=== PATIENT | female | born 1930 | race Caucasian/White ===

== ENCOUNTER 2017-02-07 08:43 | Day surgery (SDC) | payer OTHER, MEDICARE ==
[~2017-02-07 08:43] MED LIST: LIDOCAINE W/ SODIUM BICARB 0.5 ML SYR ONE; Lactated Ringers 1,000 ML PRIMARY IV ONE
[2017-02-07] MEDS ORDERED: fentaNYL Inj 100 MCG/2 ML VIAL IVP ONE (09:00)
[2017-02-07] MEDS ORDERED: MIDAZOLAM 5 MG/1 ML IVP ONE (09:00)
[2017-02-07 12:21] VITALS: RESP 12; TEMP 97.8
== END 2017-02-07 12:14 | disposition home or self-care (01) ==
LOC: SDSC 08:43 → EDBD 08:43 → SDSC 12:14
PROVIDERS: ATTEND Ophthalmology
DX: H25.12 Age-related nuclear cataract, left eye (principal)
CPT/HCPCS: 66984; J3010; J2250; J7120

== ENCOUNTER 2018-07-20 19:14 | Inpatient (IN) ==
[2018-07-20] MEDS ORDERED: CALCIUM CARBONATE 500 MG (TUMS) CHEWABLE TABLET PO PRN (21:58)
[2018-07-20] MEDS ORDERED: ACETAMINOPHEN 325 MG TABLET PO PRN (21:58)
[2018-07-20] MEDS ORDERED: DOCUSATE 100 MG CAPSULE PO PRN (21:58)
[2018-07-20] MEDS ORDERED: ONDANSETRON 4 MG/2 ML VIAL IVP PRN (21:58)
[2018-07-20] MEDS ORDERED: LIDOCAINE W/ SODIUM BICARB 0.5 ML SYR SUBD PRN (21:58)
--- NOTE | 2018-07-20 22:46 | PDOC ---
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 She hit her right wrist and her right hip and had pain. She was taken to the emergency room in [place], [place], where she resides and was found to have a fractured right hip but her x-ray for her wrist was apparently negative. She does have some soft tissue swelling there. She did not hit her head and did not lose consciousness that I am aware of. She's not had a fall like this before. She states that her pain was controlled with morphine in the emergency room there. She had some spasms but those have all resolved. She did not have any dizziness, lightheadedness or presyncopal symptoms, chest pain, shortness breath, nausea or vomiting surrounding this event. Dr. Sanches was called and he asked if I would be willing to accept the patient and admitted her and I agreed to do that. He plans on doing a hemiarthroplasty tomorrow on the right hip. From a perioperative screening standpoint, the patient does not have any history of stroke, she does not have any kidney failure problems, she does not have any coronary artery disease, congestive heart failure, or any known arrhythmias that would put her at increased risk outside of her age. She was hypertensive tonight but understandable in the setting of her pain. History was obtained with the patient, her daughter, and her mechanical reliability engineer at bedside at various times. Past Medical History Medical History: 1. GERD Surgical History: 1. Push hysterectomy. 2. Appendectomy. 3. Tonsillectomy and adenoidectomy Pertinent Family History: Patient's mother had a hip fracture at age 85 Past Social History: Does not smoke or drink. Was for 65 years but just lost her this past December. Has 3 children described as healthy. Lives in [place], [place]. Tobacco Use: Never Smoker In the Past 12 Months, Have Used or Abuse Any of the Following Substance: None Alcohol Use: None Medication / Allergies Home Medications: Home Medications 3 Medication Instructions Recorded Confirmed Type Omeprazole 20 mg PO DAILY 02/01/17 02/07/17 History Allergies/Adverse Reactions: Allergies 3 Allergy/AdvReac Type Severity Reaction Status Date / Time No Known Allergies Allergy Verified 07/20/18 22:16 Review of Systems - Review of Systems All Systems: Reviewed & No Additional Complaints Except as Stated (I did a 12 point review systems and it was negative other than that discussed in history present illness and that noted below.) - Genitourinary Genitourinary: REPORTS: Incontinence (Has some stress incontinence at times. Uses a pad.) Exam - Vitals Vital Signs: Vital Signs Temperature 98.2 F Temperature Source Temporal Artery Scan Pulse Rate [Pulse Oximeter] 85 Respiratory Rate 16 Blood Pressure [Right Arm] 150/55 Pulse Ox 94 Oxygen Flow Rate 2 Oxygen Delivery Method Nasal Cannula - General General Appearance: No Acute Distress, Cooperative - Head Head Exam: Normal Inspection, Normocephalic, Atraumatic - Eye Eye Exam: POSITIVE: Normal Appearance, No Scleral Icterus - ENT ENT Exam: POSITIVE: Mucous Membranes Moist - Neck Neck Exam: Normal Inspection, No Tenderness, No Lymphadenopathy, No Thyromegaly , JVP is not Raised - Respiratory Respiratory Exam: POSITIVE: Clear to Auscultation - Bilaterally, Breathing Non Labored - Cardiovascular Cardiovascular Exam: POSITIVE: RRR, No Murmur, No Clicks, No Gallops, No Rubs, No JVD - GI/Abdominal GI/Abdominal Exam: POSITIVE: Normal Bowel Sounds, Non Tender, Non Distended, Soft - Rectal Rectal Exam: POSITIVE: Deferred - External Exam: POSITIVE: Deferred Exam: POSITIVE: Deferred - Extremities Extremities Exam: POSITIVE: No Clubbing Present, No Edema Present, No Cyanosis Present Additional Extremities Exam Details: The right lower extremity is shorter than the left lower extremity and it is externally rotated at the hip. - Neurological Neurological Exam: POSITIVE: Alert, Oriented x 3, No Facial Droop, Speech Intact / Clear Additional Neurological Exam Details: Lower extremity muscle strength testing was deferred given the patient's injury. - Psychiatric Psychiatric Exam: POSITIVE: Normal Affect, Normal Mood - Integumentary Integumentary Exam: POSITIVE: Normal Color, Warm, Dry, Intact - Central Line Examination Central Line Present on Admission: No Results - Labs Additional Lab Results: White blood cell count is 11.6, hemoglobin 13.5, hematocrit 41.5, platelets 334, 000. Sodium is 140, potassium 3.4, chloride 104, CO2 is 28, BUN 20, creatinine 1.09, glucose 91 PT is 13.3, INR 1.0, PTT 29.5 Total protein 7.4, albumin 3.7, total bilirubin 0.4, ALT 21, AST 20, alkaline phosphatase 150 - EKG Data -: EKG Interpreted by Me Rate: Normal EKG Shows Normal: Sinus Rhythm - EKG Data EKG Interpretation: Other (There is a left bundle branch block pattern. I do not know if this is new or old. I suspect it's old.) - Imaging Status: Report Reviewed by Me (I discussed the reports with Dr. Stanford in [place], [place], and that was positive for a hip fracture with a closed surgical neck fracture of the right femur. We tried to load the films unfortunately the CD is corrupt and [facility] cannot push films so we will have to repeat them.) Assessment and Plan - Patient Problems (1) Closed right hip fracture Status: Acute Code(s): S72.001A - Fracture of unspecified part of neck of right femur, initial encounter for closed fracture Qualifiers: Encounter type: initial encounter Qualified Code(s): S72.001A - Fracture of unspecified part of neck of right femur, initial encounter for closed fracture (2) GERD (gastroesophageal reflux disease) Status: Acute Code(s): K21.9 - Gastro-esophageal reflux disease without esophagitis Qualifiers: Esophagitis presence: without esophagitis Qualified Code(s): K21.9 - Gastro -esophageal reflux disease without esophagitis (3) Left bundle branch block Status: Acute Code(s): I44.7 - Left bundle-branch block, unspecified - Assessment / Plan Additional Assessment/Plan Details: Admit the patient Orthopedic consultation for hip fracture. From on AHA/ACC non-vascular perioperative guidelines for surgical clearance perspective, I think the patient should proceed to the operating room with postoperative risk stratification. Patient has a following risk factors: No Congestive heart failure, no renal failure, no history of stroke, no coronary artery disease, no arrhythmia, and no active anginal chest pains, and patient meets 4 METS Pain control with parenteral medications such as Dilaudid and hydrocodone. Antiemetics. Nothing by mouth at midnight. Eventual DVT prophylaxis postoperatively, 28-35 days. We discussed objectives from hospitalist side which are to try to prevent urinary tract infection, pneumonia, skin breakdown, malnutrition, and DVT/PE, but I did not guarantee that these outcomes could be prevented at 100% but I did guarantee that we would try to do our best. PT and OT. Vitamin D level. MRSA screening Willis catheter due to immobility and hopefully get that out 48 hours postoperatively if possible Patient will need case management to determine rehabilitation options such a swing bed versus acute rehabilitation versus other. Type and screen for 2 units packed red blood cells CODE STATUS is discussed, patient is DNR Unfortunately in this situation, we will have to repeat films as we cannot get them from [facility] prior to surgery and the CD on which they were sent up on is not readable as it is corrupt I discussed the above plan with the patient and family and they all agree to proceed with the plan above
--- NOTE | 2018-07-20 22:47 | EKG ---
[address] [place] [address] Measurements Intervals [place] Rate: 85 P: 66 [place]: 192 QRS: -37 QRSD: 135 T: 82 QT: 410 QTc: 453 Interpretive Statements SINUS RHYTHM MARKED LEFT AXIS DEVIATION [QRS AXIS < -30] LEFT BUNDLE BRANCH BLOCK [120+ ms QRS DURATION, 80+ ms Q/S IN V1/V2, 85+ ms R IN I/aVL/V5/V6] No previous ECG available for comparison Electronically Signed On 07-21-18 09:03:48 MDT by Steve Rutherford MD [email or web address]
[2018-07-20] MEDS ORDERED: POTASSIUM CHLORIDE 20 MEQ TAB PO ONE (23:07)
[2018-07-20] MEDS: HYDROcodone-APAP 5 MG -325 MG TABLET PO PRN (23:11)
[2018-07-20] MEDS: HYDROmorphone 2 MG/1 ML IVP PRN (23:34)
[2018-07-21] MEDS: Lactated Ringers 1,000 ML PRIMARY IV SCH ×3 (00:04→14:01)
--- NOTE | 2018-07-21 00:08 | DI ---
EXAM: XR Chest, 1 View CLINICAL HISTORY: ITS.REASON fall Physician Notes: Tech Comments: TECHNIQUE: Frontal view of the chest. COMPARISON: No relevant prior studies available. FINDINGS: Lungs: Minimal left basilar atelectasis or scarring. Lungs otherwise clear. Pleural space: Unremarkable. No pneumothorax. Heart: Unremarkable. No cardiomegaly. Mediastinum: Unremarkable. Bones/joints: Unremarkable. Vasculature: Aortic calcifications. IMPRESSION: Minimal left basilar atelectasis or scarring. Lungs otherwise clear.
--- NOTE | 2018-07-21 00:13 | DI ---
EXAM: XR Pelvis, 1 or 2 Views CLINICAL HISTORY: ITS.REASON right hip pain post fall Physician Notes: Tech Comments: TECHNIQUE: Frontal view of the pelvis. COMPARISON: No relevant prior studies available. FINDINGS: Bones/joints: Right femoral neck transcervical fracture. No dislocation. Soft tissues: Unremarkable. IMPRESSION: Right femoral neck transcervical fracture.
--- NOTE | 2018-07-21 00:19 | DI ---
EXAM: XR Right Wrist, 2 Views CLINICAL HISTORY: ITS.REASON right wrist pain, acute, post fall Physician Notes: Tech Comments: TECHNIQUE: Frontal and lateral views of the right wrist. COMPARISON: No relevant prior studies available. FINDINGS: Bones/joints: Query small fracture of the radial styloid process, with intra-articular extension seen on the PA view only. Degenerative changes at the first carpometacarpal joint. No dislocation. Soft tissues: Unremarkable. No radiopaque foreign body. IMPRESSION: Query small fracture of the radial styloid process, with intra- articular extension.
[2018-07-21] MEDS: HYDROcodone-APAP 5 MG -325 MG TABLET PO PRN (04:56)
[2018-07-21] MEDS: HYDROmorphone 2 MG/1 ML IVP PRN ×3 (04:56→12:40)
[2018-07-21 05:31] LABS: BASOPHILS # (AUTO) 0.01 10*3/UL; BASOPHILS % (AUTO) 0.1 % (0-1); EOSINOPHILS # (AUTO) 0.04 10*3/UL; EOSINOPHILS % (AUTO) 0.3 % (0-8); Hematocrit [HCT] 40.2 % (37.0-47.0); Hemoglobin [HGB] 12.7 g/dL (12.0-16.0); LYMPHOCYTES # (AUTO) 0.71 10*3/uL; MEAN CORPUSCULAR HEMOGLOBIN 28.5 PG (27-31); MEAN CORPUSCULAR HGB CONC 31.6 g/dL (33-37); MEAN CORPUSCULAR VOLUME 90.3 FL (81-99); MONOCYTES # (AUTO) 0.42 10*3/UL (0.3-0.8); MONOCYTES % (AUTO) 3.4 % (5-15); NEUTROPHILS # (AUTO) 11.24 10*3/UL; NEUTROPHILS % (AUTO) 90.3 % (50-80); RED BLOOD COUNT 4.45 10^6/uL (4.20-5.40)
[2018-07-21 05:54] LABS: BLOOD UREA NITROGEN 16 mg/dL (7-22)
[2018-07-21 06:26] LABS: PLATELET MORPHOLOGY COMMENT NORMAL MORPHOLOGY (NORM); RBC MORPHOLOGY COMMENT NORMAL MORPHOLOGY (NORM); WBC MORPHOLOGY COMMENT NORMAL MORPHOLOGY (NORM)
--- NOTE | 2018-07-21 08:25 | CONSULT ---
Consult Note - Consult Consult Date: 07/21/18 Reason for Consult: PreOp Consulation : Ortho Requesting Physician: Dr. Staton Primary Care Provider: NONE NONE - History of Present Illness History of Present Illness: Patient is an 87-year-old female is coming in today for evaluation of her right hip she sustained a fracture that was evaluated and documented down in [facility]. 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 Patient states she had no shortness of breath chest pain loss of consciousness dizziness or any presyncopal or preinjury symptoms. After which she had no loss of consciousness or other changes. Patient was taken to [facility] emergency room. Fracture was found placed into a splint and was transferred to [place] for further care and treatment. Patient denied any pre- injury to right hip or left hip pain or discomfort. She was asymptomatic. Past Medical History Medical History: 1. GERD Surgical History: 1. Push hysterectomy. 2. Appendectomy. 3. Tonsillectomy and adenoidectomy Pertinent Family History: Patient's mother had a hip fracture at age 85 Past Social History: Does not smoke or drink. Was for 65 years but just lost her this past December. Has 3 children described as healthy. Lives in [place], [place]. Tobacco Use: Never Smoker In the Past 12 Months, Have Used or Abuse Any of the Following Substance: None Alcohol Use: None Medication / Allergies Home Medications: Home Medications 3 Medication Instructions Recorded Confirmed Type Omeprazole 20 mg PO DAILY 02/01/17 07/20/18 History Allergies/Adverse Reactions: Allergies 3 Allergy/AdvReac Type Severity Reaction Status Date / Time No Known Allergies Allergy Verified 07/21/18 06:42 Exam - - Exam: Examination shows that the patient is lying in bed rotation is quite comfortable and alert and oriented. She answers questions well and she is in the presence of her daughter. She has good range of motion of the upper extremities but the right wrist she does have a splint she has tenderness over the distal radius mostly on the radial styloid region. No significant ulnar- sided pain good digit motion and flexion some mild swelling good pulses and brisk refill. Examination of the right hip shows shortened external rotation good pulses brisk refill skin generally healthy. No marked bruising or ecchymosis. No pain with pelvic squeeze no left lower extremity pain or discomfort in the low back thoracic or cervical pain or discomfort. Radiographs of the wrist which were obtained in [facility] show what appears to be a nondisplaced radial styloid fracture. Radiographs of the pelvis show a right femoral neck fracture intracapsular it appears that only one view was available. Left hip appears benign. No marker available on the right hip for templating - Vitals Vital Signs: Vital Signs Temperature 98.4 F Temperature Source Temporal Artery Scan Pulse Rate [Apical] 86 Pulse Rate [Pulse Oximeter] 72 Respiratory Rate 20 Blood Pressure [Right Arm] 124/42 Pulse Ox 90 Oxygen Flow Rate 1 Oxygen Delivery Method Nasal Cannula Height 5 ft 7 in Weight 70.307 kg Results - Labs CBC and BMP: 07/21/18 05:20 07/21/18 05:20 Assessment and Plan - Assessment / Plan Additional Assessment/Plan Details: Impression: A right nondisplaced wrist fracture Right displaced femoral neck fracture Plan: We discussed the patient's current condition and clinical findings as it pertains to the current situation. Surgical versus nonsurgical options risks and benefits were discussed and reviewed. Options moving forward include but are not limited to continued choice to live with their current condition; evaluate their current condition further with imaging studies and/or diagnostic testing, etc.; treat problem/problems with surgical versus nonsurgical methods. The patient demonstrates a clear understanding of our discussion. All questions were answered. Surgical versus nonsurgical options risks and benefits were discussed and reviewed. The risks include but are not limited to bleeding, infection, neurovascular damage, wound problems, deep vein thromboses, pulmonary embolism, fracture, dislocation, nonunion/malunion, need for further surgery, need for blood transfusion, and loss of life and limb. Certainly any surgical procedure may not improve symptoms and potentially could makes symptoms worse. There are no guarantees implied with the discussion of surgical treatment. All questions are answered and the patient wishes to proceed with surgical treatment. In discussing with the patient and her daughter we will proceed with a hemiarthroplasty of the right hip did discuss with her issues total hip versus hemiarthroplasty and nonoperative treatment or reduction and percutaneous pinning techniques. Based on various issues with these different techniques and treatment did like to proceed with hemiarthroplasty which would be my preferred recommendation. We'll proceed along these lines we will look at casting the right wrist at some point postoperatively but we will protect his splint at the current time. All questions were answered. - Time/Visit Time Spent With Patient: Greater Than 35 Mintues
--- NOTE | 2018-07-21 09:29 | DI ---
XR HIP COMPLETE MIN 2VW U/L 07/21/2018 7:00 AM [place] [facility] [place] fracture, template needed ^AP and lateral right hip ^Both AP xrays with metal ball for templating Comparison: None. Findings: Portable AP and frog leg crosstable lateral views of the right hip are submitted. Diffuse d emineralization of the osseous structures limits evaluation of fine anatomic detail. There is a trans verse fracture through the femoral neck. There is slight proximal and anterior displacement of the di stal fracture fragment. The acetabulum and visualized pelvis are grossly intact. The soft tissues are unremarkable. Impression: Slightly displaced right femoral neck fracture.
--- NOTE | 2018-07-21 09:31 | DI ---
XR HIP 1VW U/L 07/21/2018 8:07 AM History: [facility] [place] ^AP LEFT HIP Comparison: None. Findings: Portable AP view of the left hip is submitted. Diffuse demineralization of the osseous stru ctures limits evaluation of fine anatomic detail. There is no evidence of acute fracture, aggressive bone lesion, or focal periostitis. Alignment is anatomic. Early hip joint osteoarthritis is noted. Th e soft tissues are unremarkable. Impression: 1. No acute osseous abnormality. 2. Early left hip osteoarthritis.
[2018-07-21] MEDS ORDERED: ceFAZolin Inj 2gm (Premix) 2 GM/50 ML BAG IV ONE ×2 (13:09→17:06)
[2018-07-21] MEDS ORDERED: LIDOCAINE W/ SODIUM BICARB 0.5 ML SYR ONE (13:09)
[2018-07-21] MEDS ORDERED: Lactated Ringers 1,000 ML PRIMARY IV ONE ×2 (13:15→18:23)
[2018-07-21] MEDS ORDERED: Sodium Chloride 0.9% vial 20 ML ONE (14:44)
[2018-07-21] MEDS ORDERED: BACITRACIN 50,000 UNIT VIAL IRRIG ONE (14:45)
[2018-07-21] MEDS ORDERED: Sodium Chloride 0.9% vial 40 ML ONE (15:20)
[2018-07-21] MEDS ORDERED: BUPivacaine Liposome/PF (Exparel) Inj 20ml vial INFIL ONE (15:20)
[2018-07-21] MEDS ORDERED: MIDAZOLAM 5 MG/1 ML ONE (15:32)
[2018-07-21] MEDS ORDERED: PROPOFOL 10 MG/1 ML (200 MG/20 ML) VIAL IV ONE (15:32)
[2018-07-21] MEDS ORDERED: fentaNYL Inj 250 MCG/5 ML VIAL ONE ×2 (15:32→17:35)
[2018-07-21] MEDS ORDERED: LIDOCAINE MPF 2% - 5 ML (20 MG/1 ML) ONE (15:32)
[2018-07-21] MEDS ORDERED: Sodium Chloride 0.9% 2,000 ML PRIMARY IV ONE (15:41)
[2018-07-21] MEDS ORDERED: Sodium Chloride 0.9% 250 ML ONE ×2 (15:41→18:49)
[2018-07-21] MEDS ORDERED: Ketorolac Inj 30 MG, Morphine Inj (Ortho Cocktail) 5 MG, BUPivacaine Inj 0.25% PF 150 MG SPLASH ONE ×3 (15:45)
[2018-07-21] MEDS ORDERED: Gentamicin Inj 40 MG/ML VIAL ONE (16:25)
[2018-07-21] MEDS ORDERED: HEPARIN 10,000 UNIT/1 ML ONE (16:26)
[2018-07-21 16:38] LABS: CLARITY,URINE CLOUDY (CLEAR); COLOR,URINE YELLOW; GLUCOSE, URINE (UA) NEGATIVE (NEG); PH,URINE 6.5 (5.0-8.5); PROTEIN,URINE NEGATIVE (NEG); URINE SAMPLE TYPE CLEAN CATCH URINE
[2018-07-21 16:39] LABS: BACTERIA,URINE MANY; BILIRUBIN,URINE NEGATIVE (NEG); OCCULT BLOOD,URINE TRACE (NEG); UROBILINOGEN,URINE 0.2 mg/dL (0.2); WBC,URINE >100
[2018-07-21] MEDS ORDERED: KETAMINE 100 MG/1 ML - 5 ML ONE (16:54)
[2018-07-21] MEDS ORDERED: LIDOCAINE W/ SODIUM BICARB 0.5 ML SYR SUBD PRN (17:00)
[2018-07-21] MEDS ORDERED: HYDROmorphone 2 MG/1 ML IVP PRN ×3 (17:00→21:04)
[2018-07-21] MEDS ORDERED: DEXAMETHASONE PF 10 MG/1 ML VIAL ONE (17:05)
[2018-07-21] MEDS ORDERED: ONDANSETRON 4 MG/2 ML VIAL ONE (17:06)
[2018-07-21] MEDS ORDERED: ROCURONIUM 10 MG/1 ML - 5 ML VIAL IVP ONE (17:12)
[2018-07-21] MEDS ORDERED: CEFTRIAXONE SODIUM 2 GM VIAL IV ONE (17:35)
[2018-07-21] MEDS ORDERED: Sodium Chloride 0.9% 100 ML IV ONE (17:36)
[2018-07-21] MEDS ORDERED: cefTRIAXone Inj 2 GM in Sodium Chloride 0.9% 100 ML IV ONE (17:44)
[2018-07-21] MEDS ORDERED: TRANEXAMIC ACID 1,000 MG / 10 ML VIAL ONE (18:21)
[2018-07-21] MEDS ORDERED: SUGAMMADEX SODIUM 200 MG/2 ML VIAL IV ONE (18:42)
--- NOTE | 2018-07-21 19:14 | ORTHO.OP ---
- - -: See Dictated Operative Report Procedure Codes - Hip Procedures Primary Hip Procedure: Other CPT Code(s) (81882 and Tomeka Ceja assisted)
--- NOTE | 2018-07-21 19:24 | CRNA.PROGR ---
Anesthesia Recovery Phase I - Post Anesthesia Evaluation Patient's Condition on Arrival in Phase I: Stable Pain Level: 3
--- NOTE | 2018-07-21 19:24 | CRNA.PROGR ---
Anesthesia Time - Procedure/Recovery Time Start Date: 07/21/18 End Date: 07/21/18 Anesthesia : Time In: 16:00 Anesthesia : Time Out: 19:15 Anesthesia : Total Time: 195 - Total Anesthesia Time Total Anesthesia Time (minutes): 195 - Other Weight: 70.307 kg Height: 5 ft 7 in Body Mass Index (BMI): 24.3 Physical Status: P2 Anesthesia Type: General Anesthesia : LMA
--- NOTE | 2018-07-21 19:52 | PDOC(PROG) ---
Date of Service: 07/21/18 Time of Service: 19:42 Interval History: seen post operatively. discussed with anesthesia, Dr. Sanches, patient's daughter. Patient denies chest pain, denies vomiting, currently pain free. still waking up from anesthesia. Objective : Data - Labs CBC and BMP: 07/21/18 05:20 07/21/18 05:20 Additional Lab Results: 07/20/18 07/21/18 07/21/18 00:00 05:20 16:20 Troponin I < 0.012 Vitamin D 25-Hydroxy 17.4 L Urine Nitrate Positive H Ur Leukocyte Esterase Moderate Urine RBC 3-5 Urine WBC >100 Urine Bacteria Many Ur Culture Indicated? Culture set - Imaging X-Ray Status: Image Reviewed by Me (Chest x-ray on my view is negative. Pelvic x-ray shows a right femoral neck fracture. X-ray of the wrist is noted. The report was that it had a fracture. This is nonoperative in terms of the wrist) Objective : Exam - General General Appearance: No Acute Distress, Cooperative Additional General Exam Details: Vital Signs - Last Taken Temperature 100.0 F H 07/21/18 13:30 Pulse Rate 73 07/21/18 13:30 Respiratory Rate 12 07/21/18 13:30 Blood Pressure 145/68 07/21/18 13:30 Pulse Ox 94 07/21/18 13:30 - Eye Eye Exam: No Scleral Icterus - ENT ENT Exam: Mucous Membranes Moist - Respiratory Respiratory Exam: Clear to Auscultation - Bilaterally, Breathing Non Labored - Cardiovascular Cardiovascular Exam: RRR, No Murmur, No Clicks, No Gallops, No Rubs, No JVD - GI/Abdominal GI/Abdominal Exam: Normal Bowel Sounds, Non Tender, Non Distended, Soft - Extremities Extremities Exam: No Clubbing Present, No Edema Present, No Cyanosis Present Additional Extremities Exam Details: Incision is dressed. A Hemovac drain is in place. This dressing is clean, dry , intact. - Neurological Neurological Exam: Alert, No Facial Droop Assessment and Plan - Patient Problems (1) Closed right hip fracture Current Visit: Yes Status: Acute Code(s): S72.001A - Fracture of unspecified part of neck of right femur, initial encounter for closed fracture Qualifiers: Encounter type: initial encounter Qualified Code(s): S72.001A - Fracture of unspecified part of neck of right femur, initial encounter for closed fracture (2) GERD (gastroesophageal reflux disease) Current Visit: Yes Status: Acute Code(s): K21.9 - Gastro-esophageal reflux disease without esophagitis Qualifiers: Esophagitis presence: without esophagitis Qualified Code(s): K21.9 - Gastro -esophageal reflux disease without esophagitis (3) Left bundle branch block Current Visit: Yes Status: Acute Code(s): I44.7 - Left bundle-branch block, unspecified (4) Vitamin D deficiency Current Visit: Yes Status: Acute Code(s): E55.9 - Vitamin D deficiency, unspecified - Assessment / Plan Additional Assessment/Plan Details: Replace vitamin D. Pain management postoperatively as well as physical therapy and occupational therapy. DVT prophylaxis 28- 35 days. Labs in a.m., check hemoglobin Outpatient, the patient would benefit from an osteoporosis evaluation.
[2018-07-21] MEDS ORDERED: ceFAZolin Inj 2gm (Premix) 2 GM/50 ML BAG IV SCH (20:05)
[2018-07-21] MEDS ORDERED: ONDANSETRON 4 MG/2 ML VIAL IVP PRN (20:05)
[2018-07-21] MEDS ORDERED: CALCIUM CARBONATE 500 MG (TUMS) CHEWABLE TABLET PO PRN (20:05)
[2018-07-21] MEDS: DOCUSATE 100 MG CAPSULE PO SCH (22:00)
[2018-07-21] MEDS: HYDROcodone-APAP 7.5 MG-325 MG TABLET PO PRN (23:33)
[2018-07-21] MEDS: ceFAZolin Inj 2gm (Premix) 2 GM/50 ML BAG IV SCH (23:52)
--- NOTE | 2018-07-22 00:10 | DI ---
EXAM: XR Right Hip With Pelvis When Performed, 2 or 3 Views CLINICAL HISTORY: ITS.REASON right hip hemiarthroplasty Physician Notes: Tech Comments: TECHNIQUE: Two or three views of the right hip, with pelvis when performed. COMPARISON: 07/21/2018 at 0812 hours. FINDINGS: Bones/joints: Interval right hip hemiarthroplasty. Anatomic alignment. No acute fracture or dislocation. Soft tissues: Recent postoperative changes including skin masha and drainage catheter are noted. IMPRESSION: Interval right hip hemiarthroplasty.
[2018-07-22 04:56] LABS: BASOPHILS # (AUTO) 0 10*3/UL; BASOPHILS % (AUTO) 0 % (0-1); EOSINOPHILS # (AUTO) 0 10*3/UL; EOSINOPHILS % (AUTO) 0 % (0-8); Hematocrit [HCT] 35.1 % (37.0-47.0); Hemoglobin [HGB] 11.3 g/dL (12.0-16.0); LYMPHOCYTES # (AUTO) 0.43 10*3/uL; MEAN CORPUSCULAR HEMOGLOBIN 28.9 PG (27-31); MEAN CORPUSCULAR HGB CONC 32.2 g/dL (33-37); MEAN CORPUSCULAR VOLUME 89.8 FL (81-99); MEAN PLATELET VOLUME 9.1 FL (7.4-12.2); MONOCYTES # (AUTO) 0.27 10*3/UL (0.3-0.8); MONOCYTES % (AUTO) 2.2 % (5-15); NEUTROPHILS # (AUTO) 11.77 10*3/UL; NEUTROPHILS % (AUTO) 94.2 % (50-80); RED BLOOD COUNT 3.91 10^6/uL (4.20-5.40)
[2018-07-22 05:05] LABS: BLOOD UREA NITROGEN 14 mg/dL (7-22)
[2018-07-22 05:53] LABS: PLATELET MORPHOLOGY COMMENT NORMAL MORPHOLOGY (NORM); RBC MORPHOLOGY COMMENT NORMAL MORPHOLOGY (NORM); WBC MORPHOLOGY COMMENT NORMAL MORPHOLOGY (NORM)
[2018-07-22 07:04] LABS: HIV ANTIBODY NEGATIVE (N); HIV-1 P24 ANTIGEN NEGATIVE (N)
[2018-07-22] MEDS: ceFAZolin Inj 2gm (Premix) 2 GM/50 ML BAG IV SCH (08:35)
[2018-07-22] MEDS: HYDROcodone-APAP 7.5 MG-325 MG TABLET PO PRN ×2 (08:35→16:51)
[2018-07-22] MEDS: CHOLECALCIFEROL 1000 IU TABLET PO SCH (08:36)
[2018-07-22] MEDS: ASPIRIN 325 MG EC TABLET PO SCH ×2 (08:36→20:00)
[2018-07-22] MEDS: DOCUSATE 100 MG CAPSULE PO SCH ×2 (08:36→20:00)
[2018-07-22] MEDS: Lactated Ringers 1,000 ML PRIMARY IV SCH ×2 (11:21)
--- NOTE | 2018-07-22 12:08 | ORTHO.PROG ---
Last Taken Vital Signs: Vital Signs - Last Taken Temperature 97.6 F 07/22/18 08:21 Pulse Rate 67 07/22/18 08:21 Respiratory Rate 20 07/22/18 08:21 Blood Pressure 125/40 07/22/18 08:21 Pulse Ox 90 07/22/18 08:21 Subjective: Patient doing well she is up in a chair and 30 been walking today. She states she has no pain. She notes a little numbness along the anterior aspect of the thigh Objective: The drain has put out about 30 mL of blood in the line is mostly serosanguineous. Motor and sensory exam is generally intact. There is a little decreased sensation along the anterior thigh region very minimal swelling to the leg dressing is in place and actively working. Patient with good pulses and brisk refill. Laboratory Results 07/21/18 07/22/18 07/22/18 Range/Units 16:20 04:50 04:50 WBC 12.50 H (4.8-10.8) 10^3/uL RBC 3.91 L (4.20-5.40) 10^6/uL Hgb 11.3 L (12.0-16.0) g/dL Hct 35.1 L (37.0-47.0) % MCV 89.8 (81-99) FL MCH 28.9 (27-31) PG MCHC 32.2 L (33-37) g/dL RDW Std Deviation 46.0 (39-50) fL RDW Coeff of Luis 14.3 (11.5-14.5) % Plt Count 277 (140-350) 10*3/uL MPV 9.1 (7.4-12.2) FL Immature Gran % (Auto) 0.2 (0-5) % Neut % (Auto) 94.2 H (50-80) % Lymph % (Auto) 3.4 L (10-50) % [place] % (Auto) 2.2 L (5-15) % Eos % (Auto) 0 (0-8) % Baso % (Auto) 0 (0-1) % Immature Gran # (Auto) 0.03 10*3/UL Neut # (Auto) 11.77 10*3/UL Lymph # (Auto) 0.43 10*3/uL [place] # (Auto) 0.27 L (0.3-0.8) 10*3/UL Eos # (Auto) 0 10*3/UL Baso # (Auto) 0 10*3/UL WBC Morphology Comment Normal morphology (NORM) Plt Morphology Comment Normal morphology (NORM) RBC Morph Comment Normal morphology (NORM) Sodium 132 L D (135-145) meq/L Potassium 4.8 (3.8-5.2) meq/L Chloride 100 (98-112) meq/L Carbon Dioxide 27 (23-33) meq/L Anion Gap 5 (5-20) BUN 14 (7-22) mg/dL Creatinine 0.7 (0.50-1.20) mg/dL BUN/Creatinine Ratio 20.00 (6-20) Glucose 146 H (78-110) mg/dL Calculated Osmolality 277.0 (267-292) mOsm/kg Calcium 8.2 L (8.7-10.7) mg/dL Ur Collection Type Clean catch urine Urine Color Yellow Urine Clarity Cloudy (CLEAR) Urine pH 6.5 (5.0-8.5) Ur Specific [place] 1.020 (1.005-1.030) Urine Protein Negative (NEG) mg/dl Urine Glucose (UA) Negative (NEG) mg/dL Urine Ketones Negative (NEG) Urine Occult Blood Trace (NEG) Urine Nitrate Positive H (NEG) Urine Bilirubin Negative (NEG) Urine Urobilinogen 0.2 (0.2) mg/dL Ur Leukocyte Esterase Moderate (NEG) Urine RBC 3-5 (NONE) /hpf Urine WBC >100 (NONE) Ur Squamous Epith Cells None (NONE) Ur Renal Epithelial Cell None (NONE) Urine Crystals None Urine Bacteria Many (NONE) Urine Casts None Urine Mucus None (NONE) Urine Trichomonas None (NONE) Urine Yeast None (NONE) Ur Culture Indicated? Culture set Hep Bs Antigen Hepatitis C Antibody HIV 1&2 Antibody Rapid (N) HIV P24 Antigen (N) 07/22/18 Range/Units 04:50 WBC (4.8-10.8) 10^3/uL RBC (4.20-5.40) 10^6/uL Hgb (12.0-16.0) g/dL Hct (37.0-47.0) % MCV (81-99) FL MCH (27-31) PG MCHC (33-37) g/dL RDW Std Deviation (39-50) fL RDW Coeff of Luis (11.5-14.5) % Plt Count (140-350) 10*3/uL MPV (7.4-12.2) FL Immature Gran % (Auto) (0-5) % Neut % (Auto) (50-80) % Lymph % (Auto) (10-50) % [place] % (Auto) (5-15) % Eos % (Auto) (0-8) % Baso % (Auto) (0-1) % Immature Gran # (Auto) 10*3/UL Neut # (Auto) 10*3/UL Lymph # (Auto) 10*3/uL [place] # (Auto) (0.3-0.8) 10*3/UL Eos # (Auto) 10*3/UL Baso # (Auto) 10*3/UL WBC Morphology Comment (NORM) Plt Morphology Comment (NORM) RBC Morph Comment (NORM) Sodium (135-145) meq/L Potassium (3.8-5.2) meq/L Chloride (98-112) meq/L Carbon Dioxide (23-33) meq/L Anion Gap (5-20) BUN (7-22) mg/dL Creatinine (0.50-1.20) mg/dL BUN/Creatinine Ratio (6-20) Glucose (78-110) mg/dL Calculated Osmolality (267-292) mOsm/kg Calcium (8.7-10.7) mg/dL Ur Collection Type Urine Color Urine Clarity (CLEAR) Urine pH (5.0-8.5) Ur Specific [place] (1.005-1.030) Urine Protein (NEG) mg/dl Urine Glucose (UA) (NEG) mg/dL Urine Ketones (NEG) Urine Occult Blood (NEG) Urine Nitrate (NEG) Urine Bilirubin (NEG) Urine Urobilinogen (0.2) mg/dL Ur Leukocyte Esterase (NEG) Urine RBC (NONE) /hpf Urine WBC (NONE) Ur Squamous Epith Cells (NONE) Ur Renal Epithelial Cell (NONE) Urine Crystals Urine Bacteria (NONE) Urine Casts Urine Mucus (NONE) Urine Trichomonas (NONE) Urine Yeast (NONE) Ur Culture Indicated? Hep Bs Antigen Pending Hepatitis C Antibody Pending HIV 1&2 Antibody Rapid Negative (N) HIV P24 Antigen Negative (N) Intake and Output - 8hrs 10/26/18 07/21/18 07/22/18 07/22/18 13:59 21:59 05:59 13:59 Intake: IV 946 / 946 3150 / 3150 567 / 567 Intake Oral Amount 300 / 300 240 / 240 Breakfast 240 / 240 Output: Output, Drainage Amount 0 / 0 30 / 30 Right Hip 0 / 0 Right Thigh 0 / 0 30 / 30 Output, Urinary Catheter Amount 175 / 175 Output, Urine Amount 500 / 500 1000 / 1000 Output, Estimated Blood Loss 400 / 400 Amount Other: Percent Meal Consumed Breakfast NPO 50% Lunch NPO Drains Hemovac Number of Voids 1 Weight 70.307 kg 70.307 kg 74.48 kg Weight Measurement Method Standing Scale Vital Signs (Last 8 hours) Temp Pulse Pulse Resp BP Pulse Ox 07/22/18 08:21 97.6 F 67 20 125/40 90 07/22/18 07:00 73 07/22/18 05:01 95 07/22/18 04:59 97.1 F 69 18 131/70 93 07/22/18 04:17 93 07/22/18 04:16 93 Assessment: Right hemiarthroplasty after intracapsular femoral neck fracture Plan: Mobilize with physical therapy and occupational therapy, DVT prophylaxis with pneumatics and aspirin. Pain control with oral and IV medication is available. Patient would like to do her rehabilitation in [place] him on Tuesday we will have Zoey try to coordinate preferably [place] and [facility].
--- NOTE | 2018-07-22 13:42 | PDOC(PROG) ---
Date of Service: 07/22/18 Time of Service: 13:39 Interval History: No chest pain, shortness breath, nausea or vomiting. Pain, thus far, is very well controlled. Objective : Data - Labs CBC and BMP: 07/22/18 04:50 07/22/18 04:50 Objective : Exam - General General Appearance: No Acute Distress, Cooperative Additional General Exam Details: Vital Signs - Last Taken Temperature 98.2 F 07/22/18 12:43 Pulse Rate 64 07/22/18 12:43 Respiratory Rate 20 07/22/18 12:43 Blood Pressure 146/73 07/22/18 12:43 Pulse Ox 95 07/22/18 12:43 - Eye Eye Exam: No Scleral Icterus - ENT ENT Exam: Mucous Membranes Moist - Respiratory Respiratory Exam: Clear to Auscultation - Bilaterally, Breathing Non Labored - Cardiovascular Cardiovascular Exam: RRR, No Murmur, No Clicks, No Gallops, No Rubs, No JVD - GI/Abdominal GI/Abdominal Exam: Normal Bowel Sounds, Non Tender, Non Distended, Soft - Extremities Extremities Exam: No Clubbing Present, No Edema Present, No Cyanosis Present - Neurological Neurological Exam: Alert, Oriented x 3, No Facial Droop, Speech Intact / Clear - Psychiatric Psychiatric Exam: Normal Affect, Normal Mood Assessment and Plan - Patient Problems (1) Closed right hip fracture Current Visit: Yes Status: Acute Code(s): S72.001A - Fracture of unspecified part of neck of right femur, initial encounter for closed fracture Qualifiers: Encounter type: initial encounter Qualified Code(s): S72.001A - Fracture of unspecified part of neck of right femur, initial encounter for closed fracture (2) GERD (gastroesophageal reflux disease) Current Visit: Yes Status: Acute Code(s): K21.9 - Gastro-esophageal reflux disease without esophagitis Qualifiers: Esophagitis presence: without esophagitis Qualified Code(s): K21.9 - Gastro -esophageal reflux disease without esophagitis (3) Left bundle branch block Current Visit: Yes Status: Acute Code(s): I44.7 - Left bundle-branch block, unspecified (4) Vitamin D deficiency Current Visit: Yes Status: Acute Code(s): E55.9 - Vitamin D deficiency, unspecified - Assessment / Plan Additional Assessment/Plan Details: Vitamin D daily. I spoke to the patient and her daughter about this. Pain control, PT and OT, DVT prophylaxis as per orthopedics. We'll make sure the social professionals's consult and for hopeful placement in a swing bed in [place] on Tuesday or early this coming week. Like to get the Willis catheter as soon as possible. Continue Rocephin for now for possible urinary tract infection/emperic therapy. De-escalate therapy as possible to any organism isolation. This would be present on admission. We could not have a urine sample done until the time of surgery because of difficulty placing catheter in [place], [place], had to be delayed here. labs in AM
--- NOTE | 2018-07-22 15:47 | CRNA.PROGR ---
Anesthesia Note - Progress Notes Anesthesia Progress Note: Post OP Anesthesia Note Pt is lying in bed, visiting with family. She states that she woke up hard last evening, having some hallucinations. This lasted about 2 hours according to the patients daughter. This morning she awakened with a clear mind and and a good appetite, she was able to enjoy all of her breakfast. She has been up ambulating and her pain is well under control. She currently denies any residual problems from the general anesthetic. Current VS are stable. Vital Signs - Last Taken Temperature 98.2 F 07/22/18 12:43 Pulse Rate 64 07/22/18 12:43 Respiratory Rate 20 07/22/18 12:43 Blood Pressure 146/73 07/22/18 12:43 Pulse Ox 95 07/22/18 12:43
[2018-07-22] MEDS: cefTRIAXone Inj 2 GM in Sodium Chloride 0.9% 100 ML IV SCH (18:59)
[2018-07-22] MEDS: CALCIUM CARBONATE 500 MG (TUMS) CHEWABLE TABLET PO PRN (22:25)
[2018-07-23] MEDS: HYDROcodone-APAP 7.5 MG-325 MG TABLET PO PRN ×4 (03:32→20:08)
[2018-07-23 04:33] LABS: BASOPHILS # (AUTO) 0.01 10*3/UL; BASOPHILS % (AUTO) 0.1 % (0-1); EOSINOPHILS # (AUTO) 0.44 10*3/UL; EOSINOPHILS % (AUTO) 4.2 % (0-8); Hematocrit [HCT] 31.1 % (37.0-47.0); Hemoglobin [HGB] 9.9 g/dL (12.0-16.0); LYMPHOCYTES # (AUTO) 1.32 10*3/uL; MEAN CORPUSCULAR HEMOGLOBIN 28.7 PG (27-31); MEAN CORPUSCULAR HGB CONC 31.8 g/dL (33-37); MEAN CORPUSCULAR VOLUME 90.1 FL (81-99); MEAN PLATELET VOLUME 9.1 FL (7.4-12.2); MONOCYTES # (AUTO) 0.76 10*3/UL (0.3-0.8); MONOCYTES % (AUTO) 7.2 % (5-15); NEUTROPHILS # (AUTO) 8.04 10*3/UL; NEUTROPHILS % (AUTO) 75.9 % (50-80); RED BLOOD COUNT 3.45 10^6/uL (4.20-5.40)
[2018-07-23 04:37] LABS: PLATELET MORPHOLOGY COMMENT NORMAL MORPHOLOGY (NORM); RBC MORPHOLOGY COMMENT NORMAL MORPHOLOGY (NORM); WBC MORPHOLOGY COMMENT NORMAL MORPHOLOGY (NORM)
[2018-07-23 04:41] LABS: BLOOD UREA NITROGEN 19 mg/dL (7-22); BUN/CREATININE RATIO 21.11 (6-20)
[2018-07-23] MEDS: ASPIRIN 325 MG EC TABLET PO SCH ×2 (08:50→20:08)
[2018-07-23] MEDS: CHOLECALCIFEROL 1000 IU TABLET PO SCH (08:50)
[2018-07-23] MEDS: DOCUSATE 100 MG CAPSULE PO SCH ×2 (08:50→20:08)
--- NOTE | 2018-07-23 10:16 | PT.PROG ---
Progress Note Progress Note: S. patient stated that she is feeling good this morning, she rates her pain at a 2/10. Patient reported that she has a lot of stairs at home. O. Patient transferred to the wheelchair and was wheeled to t the therapy gym where she had heat to her hip then performed heel slides, quad sets, ankle pumps , short arc quads, sit to stands and box step ups (#2 box) all x 10. Patient then ambulated 70 feet to the wheelchair and was returned to her room where she was left in bed with alarm and call light. A. Patient tolerated therapy well, she requires min assist x 1 with bed mobility however is Contact guard assist with ambulation and transfers. Patient would continue to benefit from skilled therapy to increase mobility and endurance at this time. Patient will perform stair training tomorrow 07/24. P. Continue POC.
[2018-07-23] MEDS ORDERED: MAGNESIUM 400 MG/5 ML - 30 ML (MILK OF MAGNESIA) PO ONE (11:10)
[2018-07-23] MEDS ORDERED: POLYETHYLENE GLYCOL 3350 17 GM POWDER PO ONE (11:10)
[2018-07-23] MEDS ORDERED: MAGNESIUM 400 MG/5 ML - 30 ML (MILK OF MAGNESIA) PO PRN (11:10)
--- NOTE | 2018-07-23 11:24 | PDOC(PROG) ---
Date of Service: 07/23/18 Time of Service: 11:13 Interval History: hip pain well controlled. no chest pain, no SOB, no nausea or vomiting, does have some constipation. Objective : Data - Labs CBC and BMP: 07/23/18 04:15 07/23/18 04:15 Objective : Exam - General General Appearance: No Acute Distress, Cooperative Additional General Exam Details: Vital Signs - Last Taken Temperature 98.4 F 07/23/18 08:53 Pulse Rate 80 07/23/18 08:53 Respiratory Rate 20 07/23/18 08:53 Blood Pressure 146/67 07/23/18 08:53 Pulse Ox 96 07/23/18 08:53 - Eye Eye Exam: No Scleral Icterus - ENT ENT Exam: Mucous Membranes Moist - Respiratory Respiratory Exam: Clear to Auscultation - Bilaterally, Breathing Non Labored - Cardiovascular Cardiovascular Exam: RRR, No Murmur, No Clicks, No Gallops, No Rubs, No JVD - GI/Abdominal GI/Abdominal Exam: Normal Bowel Sounds, Non Tender, Non Distended, Soft - Extremities Extremities Exam: No Clubbing Present, No Edema Present, No Cyanosis Present Additional Extremities Exam Details: dressing in place, no erythema, swelling okay. - Neurological Neurological Exam: Alert, Oriented x 3, No Facial Droop, Speech Intact / Clear - Psychiatric Psychiatric Exam: Normal Affect, Normal Mood Assessment and Plan - Patient Problems (1) Closed right hip fracture Current Visit: Yes Status: Acute Code(s): S72.001A - Fracture of unspecified part of neck of right femur, initial encounter for closed fracture Qualifiers: Encounter type: initial encounter Qualified Code(s): S72.001A - Fracture of unspecified part of neck of right femur, initial encounter for closed fracture (2) GERD (gastroesophageal reflux disease) Current Visit: Yes Status: Acute Code(s): K21.9 - Gastro-esophageal reflux disease without esophagitis Qualifiers: Esophagitis presence: without esophagitis Qualified Code(s): K21.9 - Gastro -esophageal reflux disease without esophagitis (3) Left bundle branch block Current Visit: Yes Status: Acute Code(s): I44.7 - Left bundle-branch block, unspecified (4) Vitamin D deficiency Current Visit: Yes Status: Acute Code(s): E55.9 - Vitamin D deficiency, unspecified (5) Constipation Current Visit: Yes Status: Acute Code(s): K59.00 - Constipation, unspecified Qualifiers: Constipation type: drug induced constipation Qualified Code(s): K59.03 - Drug induced constipation - Assessment / Plan Additional Assessment/Plan Details: miralax and MOM for constipation, continue colace PT and OT Hb noted, but no need for a transfusion labs in AM patient wants to go to swing bed in [place].
--- NOTE | 2018-07-23 11:42 | ORTHO.PROG ---
Last Taken Vital Signs: Vital Signs - Last Taken Temperature 98.4 F 07/23/18 08:53 Pulse Rate 80 07/23/18 08:53 Respiratory Rate 20 07/23/18 08:53 Blood Pressure 146/67 07/23/18 08:53 Pulse Ox 96 07/23/18 08:53 Subjective: Patient notes she is doing well with pain well-controlled, she is doing well with therapy to. Objective: Dressing is currently working with good vacuum mild amount of swelling no active bleeding, no redness or erythema good motion of the foot and ankle and knee. Sensory and motor is intact good pulses brisk refill. Abnormal Lab Results (Last 24 Hours) Range/Units 07/23/18 07/23/18 04:15 04:15 RBC (4.20-5.40) 10^6/uL 3.45 L Hgb (12.0-16.0) g/dL 9.9 L Hct (37.0-47.0) % 31.1 L MCHC (33-37) g/dL 31.8 L Anion Gap (5-20) 4 L BUN/Creatinine Ratio (6-20) 21.11 H Calcium (8.7-10.7) mg/dL 8.5 L Laboratory Results 07/23/18 07/23/18 Range/Units 04:15 04:15 WBC 10.58 (4.8-10.8) 10^3/uL RBC 3.45 L (4.20-5.40) 10^6/uL Hgb 9.9 L (12.0-16.0) g/dL Hct 31.1 L (37.0-47.0) % MCV 90.1 (81-99) FL MCH 28.7 (27-31) PG MCHC 31.8 L (33-37) g/dL RDW Std Deviation 46.0 (39-50) fL RDW Coeff of Luis 14.4 (11.5-14.5) % Plt Count 255 (140-350) 10*3/uL MPV 9.1 (7.4-12.2) FL Immature Gran % (Auto) 0.1 (0-5) % Neut % (Auto) 75.9 (50-80) % Lymph % (Auto) 12.5 (10-50) % [place] % (Auto) 7.2 (5-15) % Eos % (Auto) 4.2 (0-8) % Baso % (Auto) 0.1 (0-1) % Immature Gran # (Auto) 0.01 10*3/UL Neut # (Auto) 8.04 10*3/UL Lymph # (Auto) 1.32 10*3/uL [place] # (Auto) 0.76 (0.3-0.8) 10*3/UL Eos # (Auto) 0.44 10*3/UL Baso # (Auto) 0.01 10*3/UL WBC Morphology Comment Normal morphology (NORM) Plt Morphology Comment Normal morphology (NORM) RBC Morph Comment Normal morphology (NORM) Sodium 135 (135-145) meq/L Potassium 4.2 (3.8-5.2) meq/L Chloride 100 (98-112) meq/L Carbon Dioxide 31 (23-33) meq/L Anion Gap 4 L (5-20) BUN 19 (7-22) mg/dL Creatinine 0.9 (0.50-1.20) mg/dL BUN/Creatinine Ratio 21.11 H (6-20) Glucose 100 (78-110) mg/dL Calculated Osmolality 281.0 (267-292) mOsm/kg Calcium 8.5 L (8.7-10.7) mg/dL Vital Signs (24 hrs) Temp Pulse Pulse Resp BP BP Pulse Ox 07/23/18 08:53 98.4 F 80 20 146/67 96 07/23/18 07:00 74 07/23/18 03:34 96.9 F 80 20 140/73 93 07/23/18 00:43 97.9 F 77 20 147/68 95 07/22/18 19:12 98.3 F 71 20 149/64 96 07/22/18 19:00 74 07/22/18 18:54 92 07/22/18 16:18 98.1 F 70 20 146/61 94 07/22/18 12:43 98.2 F 64 20 146/73 95 Assessment: Right hemiarthroplasty after femoral neck fracture Anemia postoperative Plan: Continue with current plan with physical therapy and occupational therapy, anticoagulation with pneumatic sequentials and aspirin 325 twice a day. Patient is doing well with pain control. We will get the patient set up with social work to see if we can get her into a rehabilitation placed on the [employer] area I would prefer a non-retirement venue if available.
[2018-07-23] MEDS: CALCIUM CARBONATE 500 MG (TUMS) CHEWABLE TABLET PO PRN (15:21)
[2018-07-23] MEDS: cefTRIAXone Inj 2 GM in Sodium Chloride 0.9% 100 ML IV SCH (18:39)
[2018-07-24] MEDS: HYDROcodone-APAP 7.5 MG-325 MG TABLET PO PRN ×4 (03:02→17:30)
[2018-07-24 04:49] LABS: BASOPHILS # (AUTO) 0.02 10*3/UL; BASOPHILS % (AUTO) 0.3 % (0-1); EOSINOPHILS # (AUTO) 0.67 10*3/UL; EOSINOPHILS % (AUTO) 8.6 % (0-8); Hematocrit [HCT] 31.8 % (37.0-47.0); Hemoglobin [HGB] 10.1 g/dL (12.0-16.0); LYMPHOCYTES # (AUTO) 1.17 10*3/uL; MEAN CORPUSCULAR HEMOGLOBIN 28.9 PG (27-31); MEAN CORPUSCULAR HGB CONC 31.8 g/dL (33-37); MEAN CORPUSCULAR VOLUME 91.1 FL (81-99); MEAN PLATELET VOLUME 9.5 FL (7.4-12.2); MONOCYTES % (AUTO) 7.7 % (5-15); NEUTROPHILS # (AUTO) 5.29 10*3/UL; RED BLOOD COUNT 3.49 10^6/uL (4.20-5.40)
[2018-07-24 05:28] LABS: PLATELET MORPHOLOGY COMMENT NORMAL MORPHOLOGY (NORM); RBC MORPHOLOGY COMMENT NORMAL MORPHOLOGY (NORM); WBC MORPHOLOGY COMMENT NORMAL MORPHOLOGY (NORM)
[2018-07-24 05:34] LABS: BLOOD UREA NITROGEN 14 mg/dL (7-22)
--- NOTE | 2018-07-24 08:02 | PDOC(PROG) ---
Date of Service: 07/24/18 Time of Service: 08:00 Interval History: Subjective Patient denying new symptoms. She said she had some spasm in her right leg when she walked from the bed to the chair not severe maybe 2 out of 10 she said. No shortness of breath, no nausea. She did have a bowel movement yesterday. Objective : Data - Labs CBC and BMP: 07/24/18 04:25 07/24/18 04:25 Objective : Exam - General General Appearance: No Acute Distress, Cooperative - Head Head Exam: Normal Inspection - Eye Eye Exam: Normal Appearance - ENT ENT Exam: Normal Exam - Neck Neck Exam: Normal Inspection - Respiratory Respiratory Exam: Clear to Auscultation - Bilaterally - Cardiovascular Cardiovascular Exam: RRR - GI/Abdominal GI/Abdominal Exam: Normal Bowel Sounds, Non Tender, Non Distended, Soft, No Organomegaly - Rectal Rectal Exam: Deferred - External Exam: Deferred Exam: Deferred - Extremities Extremities Exam: Normal Inspection - Back Back Exam: Normal Inspection - Neurological Neurological Exam: Alert, Oriented x 3, CN II-XII Intact, No Facial Droop, Speech Intact / Clear - Psychiatric Psychiatric Exam: Normal Affect - Integumentary Integumentary Exam: Normal Color Assessment and Plan - Patient Problems (1) Closed right hip fracture Current Visit: Yes Status: Acute Comment: Status post surgery. Continue PT and OT. For DVT prophylaxis she was put on aspirin continue. I will speak with the office administration to arrange for rehabilitation in [place]. Code(s): S72.001A - Fracture of unspecified part of neck of right femur, initial encounter for closed fracture Qualifiers: Encounter type: initial encounter Qualified Code(s): S72.001A - Fracture of unspecified part of neck of right femur, initial encounter for closed fracture (2) GERD (gastroesophageal reflux disease) Current Visit: Yes Status: Acute Comment: Not an issue currently. Code(s): K21.9 - Gastro-esophageal reflux disease without esophagitis Qualifiers: Esophagitis presence: without esophagitis Qualified Code(s): K21.9 - Gastro -esophageal reflux disease without esophagitis (3) Vitamin D deficiency Current Visit: Yes Status: Acute Comment: She is on vitamin D replacement continue Code(s): E55.9 - Vitamin D deficiency, unspecified (4) Constipation Current Visit: Yes Status: Acute Comment: This is resolved Code(s): K59.00 - Constipation, unspecified Qualifiers: Constipation type: drug induced constipation Qualified Code(s): K59.03 - Drug induced constipation (5) Postoperative anemia due to acute blood loss Current Visit: Yes Status: Acute Comment: Level stable she does not need transfusion. Code(s): D62 - Acute posthemorrhagic anemia
[2018-07-24] MEDS: DOCUSATE 100 MG CAPSULE PO SCH (08:42)
[2018-07-24] MEDS: CHOLECALCIFEROL 1000 IU TABLET PO SCH (08:42)
[2018-07-24] MEDS: ASPIRIN 325 MG EC TABLET PO SCH (08:43)
[2018-07-24] MEDS ORDERED: POLYETHYLENE GLYCOL 3350 17 GM POWDER PO SCH (09:00)
--- NOTE | 2018-07-24 09:20 | ORTHO.PROG ---
Last Taken Vital Signs: Vital Signs - Last Taken Temperature 98.2 F 07/24/18 04:31 Pulse Rate 67 07/24/18 07:00 Respiratory Rate 16 07/24/18 04:31 Blood Pressure 139/55 07/24/18 04:31 Pulse Ox 92 07/24/18 04:31 Subjective: Patient doing well pain well controlled mobilizing Objective: Right lower extremity good active range of motion knee motion good ankle motion is good sensory exam is intact motor exam is intact. Good pulses brisk refill her negative suction dressing is sucked down nicely however it seems to be leaking. Laboratory Results 07/24/18 07/24/18 Range/Units 04:25 04:25 WBC 7.77 (4.8-10.8) 10^3/uL RBC 3.49 L (4.20-5.40) 10^6/uL Hgb 10.1 L (12.0-16.0) g/dL Hct 31.8 L (37.0-47.0) % MCV 91.1 (81-99) FL MCH 28.9 (27-31) PG MCHC 31.8 L (33-37) g/dL RDW Std Deviation 46.0 (39-50) fL RDW Coeff of Luis 14.6 H (11.5-14.5) % Plt Count 252 (140-350) 10*3/uL MPV 9.5 (7.4-12.2) FL Immature Gran % (Auto) 0.3 (0-5) % Neut % (Auto) 68.0 (50-80) % Lymph % (Auto) 15.1 (10-50) % [place] % (Auto) 7.7 (5-15) % Eos % (Auto) 8.6 H (0-8) % Baso % (Auto) 0.3 (0-1) % Immature Gran # (Auto) 0.02 10*3/UL Neut # (Auto) 5.29 10*3/UL Lymph # (Auto) 1.17 10*3/uL [place] # (Auto) 0.60 (0.3-0.8) 10*3/UL Eos # (Auto) 0.67 10*3/UL Baso # (Auto) 0.02 10*3/UL WBC Morphology Comment Normal morphology (NORM) Plt Morphology Comment Normal morphology (NORM) RBC Morph Comment Normal morphology (NORM) Sodium 137 (135-145) meq/L Potassium 4.2 (3.8-5.2) meq/L Chloride 102 (98-112) meq/L Carbon Dioxide 31 (23-33) meq/L Anion Gap 4 L (5-20) BUN 14 (7-22) mg/dL Creatinine 0.7 (0.50-1.20) mg/dL BUN/Creatinine Ratio 20.00 (6-20) Glucose 96 (78-110) mg/dL Calculated Osmolality 284.0 (267-292) mOsm/kg Calcium 8.5 L (8.7-10.7) mg/dL Vital Signs (24 hrs) Temp Pulse Resp BP Pulse Ox 07/24/18 07:00 67 07/24/18 04:31 98.2 F 72 16 139/55 92 07/23/18 23:54 97.9 F 86 18 150/67 92 07/23/18 21:00 98 07/23/18 19:56 98.0 F 77 20 134/68 97 07/23/18 16:30 98.2 F 69 18 133/69 99 07/23/18 12:43 98.0 F 66 20 159/65 93 Assessment: Right hemiarthroplasty Anemia postoperative Plan: Patient will continue with physical therapy occupational therapy, if patient is able to be discharged to [place] for fci care that may occur today or tomorrow or possibly to the [facility] and [place]. She will continue with pain control with oral medications as needed. Continue with the negative suction dressing which is in place until we get to about 7 day jasxon or when the batteries run out
[2018-07-24 10:24] VITALS: RESP 14
--- NOTE | 2018-07-24 11:16 | PT.PROG ---
Progress Note Progress Note: S. Patient stated that she is feeling good this morning, she reports that she has some pain in her hip this morning however still very minimal. O. Patient ambulated 50 feet to the wheelchair and was wheeled to the therapy gym where she had heat to her hip and then performed heel slides, quad sets, ankle pumps, glute sets, and short arc quads, seated long arc quads, sit to stands and box step ups (#2 box) all x 10 Patient was fitted for a front wheeled walker and instructed on proper use then ambulated 80 feet to the wheelchair and was returned to her room where she was left in bed with nursing. A. Patient tolerated therapy well this morning, she was able to perform all exercises with no increase in pain or problems, patient was able to perform bed mobility, transfers and ambulation with stand by guard assist, she would benefit from continued therapy to increase strength and endurance at this time. P. Continue POC. Stair training to be performed 07/24 PM.
--- NOTE | 2018-07-24 11:30 | PTI REPORT ---
Thank you for the referral of Devika Vick. She was seen on 07/22/18 for an inpatient evaluation status post right hip fracture with laureano arthroplasty. SUBJECTIVE: The patient 87-year-old female. The patient reports she has no pain. The patient lives in [place] by herself and is independent with cooking, cleaning , bathing, and dressing. The patient still drives and is very independent. The patient does not use an assistive device at home. The patient has one stair to get into her home. PAST MEDICAL HISTORY: Past medical history can be found in the patient's medical record. OBJECTIVE FINDINGS: General observations: Nursing was present during therapy session. The patient was on two liters of oxygen, an IV that was disconnected prior to movement, a Willis catheter, a drain, and a PREVENA pump in place. Bed mobility: The patient required min assist x2 for supine to sit transfer with head of bed elevated over 30 degrees for lines and leads. Transfers: The patient required contact guard assist x2 for sit to stand transfer from the edge of the bed. Ambulation: The patient was issued a walker and was instructed on gait training with a step-to gait pattern with walker. The patient required max cues for proper technique and contact guard assist x2. Sensation: The patient demonstrated a slight decrease in L3 dermatome on right lower extremity ASSESSMENT: The patient is an 87-year-old female status post anterior laureano arthroplasty. The patient would benefit from skilled therapy in order to improve overall functional mobility and to return to prior level of function. The patient's prognosis for therapy is good. Problem List: Decreased strength Decreased functional mobility Decreased endurance Short-Term Goals: To be met by discharge from inpatient: Patient will be independent with all transfers with walker. Patient will be able to ambulate 150 feet with walker independently. Patient will be able to tolerate 15 minutes of activity in order to improve endurance for home ADLs. Long-Term Goals: To be met following discharge from inpatient: Patient will be able to return home per prior level of function. Patient will benefit from outpatient physical therapy. TREATMENT PLAN: Patient will be seen B.I.D during the week and one time per day over the weekend as an inpatient for therapeutic exercises, functional activities, neuromuscular reeducation, gait training, and modalities as needed. INITIAL TREATMENT: Treatment today consisted of the initial evaluation. The patient was instructed on ambulation x50 feet with contact guard assist x2 with max cues for gait technique. The patient was left in chair with nursing present. JOSÉ MIGUEL
--- NOTE | 2018-07-24 15:11 | OT.PROG ---
Progress Note Progress Note: Occupational Therapy: S: Pt. reports 2-3/10 pain this afternoon in her R hip. Pt. describes pain as being in the muscle. She is hoping to go back to [place] soon. O: Pt. was seen for skilled occupational therapy session with a focus on UE strengthening related to ADL performance and functional mobility. Pt. was seen in therapy department and pt. completed the following UE strengthening with RTB while seated EOM: shoulder flexion, shoulder extension, triceps extension, biceps curls, rows, horizontal abduction and scapular retraction all to fatigue. A: Pt. tolerated between 15-30 repetitions before fatigue. Pt. did well with bed mobility tasks and required min. A to move from supine to sitting EOM. Continue to progress with UE strengthening, functional mobility and ADL performance. Pt. may benefit to practice with a tub transfer before returning home. P: Continue POC. KRISTI Olsen/Mitch
--- NOTE | 2018-07-24 15:21 | DCSUMMARY ---
Hospitalization Summary Admit Date: 07/20/2018 Discharge Date: 07/24/18 Hospital Course: Discharge diagnoses 1. Right hip fracture status post right hemiarthroplasty 2. UTI secondary to Klebsiella 3. Anemia secondary to postoperative blood loss, did not need blood transfusion 4. History of GERD 5. Left bundle branch block 6. Vitamin D deficiency 7. Nondisplaced right styloid fracture Hospital course This is an 87 years old female with medical history significant only for history of GERD who was painting shed at the [facility] when she had some sort of misstep in the [place] surrounding the shed and fell down. She hit her right wrist and right hip, she was taken to the emergency department in [place] and was found to have right hip fracture and this was discussed with Dr. Sanches he suggested admission to our hospital. The patient was admitted to our hospital by the hospitalist service please see Dr. Staton note. Patient had right knee arthroplasty done by Dr. Sanches. The postoperative course was uneventful. She did have a UTI which was put on Rocephin. In addition she did have vitamin D deficiency and she was put on vitamin D replacement. An x-ray of the right wrist when she came in did show right-styloid fracture nondisplaced and she was put in a splint. I saw her the day of discharge she did not have significant symptoms. Initially there was a plan for her to go to [place] for rehabilitation but then this was changed to go home and go to outpatient physical therapy. Patient will be followed up by Dr. Sanches. The growth from urine did show Klebsiella. We did discharge her on Augmentin. Discharge instruction Diet regular activity as tolerated Medications Current Medication(s) 3 Medication Instructions Recorded Confirmed Type Omeprazole 20 mg PO DAILY 02/01/17 07/20/18 History Amoxicillin/Potassium Clav 1 ea PO BID #6 tab 07/24/18 Rx [Augmentin 875-125 Tablet] Aspirin EC 325 mg PO BID tab 07/24/18 Rx Cholecalciferol [Vitamin D3] 2,000 iu PO DAILY tab 07/24/18 Rx HYDROcodone/APAP 7.5/325 Tab 1 - 2 tab PO Q4H PRN tab 07/24/18 Rx [Patriot 7.5/325 Tab] Follow-up with PCP and with Dr. Sanches Condition at discharge stable for discharge Exam - Vitals Vital Signs: Vital Signs Temperature 98.0 F Temperature Source Temporal Artery Scan Pulse Rate [Apical] 74 Pulse Rate [Pulse Oximeter] 82 Pulse Rate 73 Respiratory Rate 14 Blood Pressure [Left Arm] 134/53 Blood Pressure [Right Arm] 149/64 Blood Pressure 145/68 Pulse Ox 92 Oxygen Flow Rate 1 Oxygen Delivery Method Room Air Height 5 ft 7 in Weight 158 lb 9.6 oz Patient Problems - Patient Problem List (1) Closed right hip fracture Status: Acute Code(s): S72.001A - Fracture of unspecified part of neck of right femur, initial encounter for closed fracture Qualifiers: Encounter type: initial encounter Qualified Code(s): S72.001A - Fracture of unspecified part of neck of right femur, initial encounter for closed fracture Category: Medical (2) GERD (gastroesophageal reflux disease) Status: Acute Code(s): K21.9 - Gastro-esophageal reflux disease without esophagitis Qualifiers: Esophagitis presence: without esophagitis Qualified Code(s): K21.9 - Gastro -esophageal reflux disease without esophagitis Category: Medical (3) Vitamin D deficiency Status: Acute Code(s): E55.9 - Vitamin D deficiency, unspecified Category: Medical (4) Constipation Status: Acute Code(s): K59.00 - Constipation, unspecified Qualifiers: Constipation type: drug induced constipation Qualified Code(s): K59.03 - Drug induced constipation Category: Medical (5) Postoperative anemia due to acute blood loss Status: Acute Code(s): D62 - Acute posthemorrhagic anemia Category: Medical
--- NOTE | 2018-07-24 15:36 | PT.PROG ---
Progress Note Progress Note: S. Patient states that she is feeling good, she feels that she is ready to go home. O. Patient ambulated 175 feet to the therapy gym where she had heat to her hip then performed sit to stands, standing hip flexion/extension, hip abduction/ adduction (within limits), Patient ambulated 80 feet to the stair well and ascended and descended 3 stairs with front wheeled walker. Patient was wheeled back to her room where she was left in bed with alarm and call light. A. Patient tolerated therapy well this morning, she was able to perform all exercises with no increase in pain or problems. Patient was able to perform stair training well this afternoon. Patient has met all goals at this time and would benefit from outpatient therapy at this time. P. Continue POC.
[2018-07-24 16:30] VITALS: BP 147/74; TEMP 98.4; O2SAT 99
[2018-07-24] MEDS ORDERED: HYDROcodone-APAP 7.5 MG-325 MG TABLET PO ONE (18:00)
--- NOTE | 2018-07-27 09:45 | OTI REPORT ---
Thank you for the referral of COLT GAO. She was seen on 07/24/18 for hip fracture. SUBJECTIVE: Patient is an 87 year old female who lives independently in [place]. Patient is being seen secondary to having a hip fracture and was independent with all of her ADL's and functional activities. Today patient was able to sit edge of chair and dress lower extremity independently, don and doff socks independently come to sit to stands with stand by assist she was observed being able to ambulate to the toilet and completed toilet transfer with contact guard assist she was able to follow her precautions she was not issued any equipment as she said she would probably not use it and she was able to dress self without adaptive devices without pain. PAST MEDICAL HISTORY: Past medical history can be found in the patient's medical record. ASSESSMENT: Patient did well she does not need any further occupational therapy she may go to [place] to a swing bed. Her abilities are good to go home and be independent with ADL's. TREATMENT PLAN: Patient will be seen B.I.D during the week and one time per day over the weekend as an inpatient to address the above goals and objectives. INITIAL TREATMENT: EVELIOD
== END 2018-07-24 17:40 | disposition home or self-care (01) | DRG 470 ==
LOC: MED/SURG 22:05 → OPS 07-21 12:51 → MED/SURG 07-21 20:06
PROVIDERS: ADMIT Family Medicine; ATTEND Family Medicine